=== PATIENT | female | born 1950 | race Asian ===

== ENCOUNTER 2018-06-17 10:38 | Emergency (ER) | payer OTHER ==
[2018-06-17] MEDS ORDERED: Ondansetron ODT TAB* 4 MG PO ONE (11:48)
[2018-06-17] MEDS ORDERED: Meclizine TAB* 12.5 MG PO ONE (11:48)
--- NOTE | 2018-06-17 11:52 | UC ---
Dizzy HPI HPI Summary: 68-year-old woman comes in with a chief complaint of dizziness. 4 days ago she had a brief episode of spinning dizziness and it went away on its own. 2 days ago in the evening of June 15, 2018 she started with more consistent spinning dizziness. The dizziness gets worse with movement of the head or standing and walking. He gets better with rest and keeping her head steady. She occasionally has a frontal headache that she reports is mild and intermittent. Denies any changes in speech. She does say that bright lights make the dizziness and the headache worse. No loss of vision or blurred vision. No focal weakness or numbness. Patient has had dizziness like this on and off in the past but it's always been very brief and gone away on its own. No URI/ sinusitis Sx. No ear pain. Positive nausea. Has vomited. Noted BP 180 at home this am. - History Of Current Complaint Chief Complaint: UCAbdominalPain Stated Complaint: ABD PAIN Time Seen by Provider: 06/17/18 10:48 Pain Intensity: 0 - Allergies/Home Medications Allergies/Adverse Reactions: Allergies Allergy/AdvReac Type Severity Reaction Status Date / Time bee venom protein (honey bee) Allergy Unknown Verified 06/17/18 11:03 Reaction Details sulfamethoxazole Allergy Hives Verified 06/17/18 11:03 [From Bactrim] trimethoprim [From Bactrim] Allergy Hives Verified 06/17/18 11:03 Home Medications: Home Medications Calcium Carbonate [Tums] 500 mg PO 06/17/18 [History] PMH/Surg Hx/FS Hx/Imm Hx Previously Healthy: Yes Cardiovascular History: Hypertension - Surgical History Surgical History: None - Family History Known Family History: Positive: Non-Contributory - Social History Alcohol Use: None Substance Use Type: None Smoking Status (MU): Never Smoked Tobacco Review of Systems All Other Systems Reviewed And Are Negative: Yes Constitutional: Positive: Negative Skin: Positive: Negative Eyes: Positive: Photophobia. Negative: Blurred Vision ENT: Positive: Negative Respiratory: Positive: Negative Cardiovascular: Positive: Negative Gastrointestinal: Positive: Vomiting, Nausea Motor: Positive: Negative Neurovascular: Positive: Negative Musculoskeletal: Positive: Negative Neurological: Positive: Headache Psychological: Positive: Negative Is Patient Immunocompromised?: No Physical Exam Triage Information Reviewed: Yes Appearance: Well-Appearing, No Pain Distress, Well-Nourished Vital Signs: Initial Vital Signs Temp 98.2 F 06/17/18 10:59 Pulse 53 06/17/18 10:59 Resp 18 06/17/18 10:59 BP 155/92 06/17/18 10:59 Pulse Ox 100 06/17/18 10:59 Vital Signs Reviewed: Yes Eyes: Positive: Conjunctiva Clear, Other: - PERRLA/EOMI POSITIVE HORIZONTAL NYSTAGMUS. NO VERTICAL OR AT REST NYSTAGMUS. ENT: Positive: TMs normal, Other - RT EAR CANAL CERUMEN. Negative: Nasal congestion, Nasal drainage Neck exam: Normal Neck: Positive: Supple Respiratory: Positive: Lungs clear, Normal breath sounds, No respiratory distress Cardiovascular: Positive: Bradycardia Musculoskeletal Exam: Normal Musculoskeletal: Positive: Strength Intact, ROM Intact Neurological Exam: Normal Neurological: Positive: Alert, Muscle Tone Normal, Other: - GCS 15. NORMAL SPEECH. NO VISUAL FIELD DEFICITS. NO FACIAL DROOP. NO ARM/LEG WEAKNESS/ NUMBNESS. NORMAL FINGER TO NOSE AND HEEL TO MARLEY. Psychological Exam: Normal Psychological: Positive: Normal Response To Family, Age Appropriate Behavior Skin Exam: Normal Diagnostics - EKG Cardiac Rate: Bradycardia - at 1050 Ectopy: None ST Segment: Normal Dizzy Course/Dx - Course Course Of Treatment: Patient Name: JAMIN DODGE Medical Record#: [id number] Ordering Physician: Kentrell Tian MD Acct.#: [id number] : 1950 Age: 68 Sex: F Location: [facility] Exam Date: 06/17/18 1218 ADM Status: REG ER Order Information: CT BRAIN WO Accession Number: [id number] CPT: 48920 Indication: Dizziness. Abdominal pain. Comparison: No relevant prior exams available on the [facility] for comparison. Technique: Noncontrast CT vertex of skull through foramen magnum. Report: The sulci, ventricles, and basal cisterns are normal for age. Horta matter white matter differentiation is preserved without evidence for edema. No intra or extra axial hemorrhage, mass, or fluid collection detected. Unremarkable visualized orbital contents. Unremarkable calvarium and skull base. Unremarkable scalp. Partially visualized RIGHT maxillary sinus is remarkable for an air-fluid level and punctate gas bubble as well as probable chronic indolent thickening of the sinus wall. Small air-fluid level at the RIGHT sphenoid sinus. Clear mastoid air spaces. IMPRESSION: #. Negative unenhanced CT of the brain. #. Stigmata of acute on chronic RIGHT maxillary sinusitis. Additional small air- fluid level at the RIGHT sphenoid sinus which may reflect acute sinusitis. <Electronically signed by Aleksandr Clifton MD in [place]> 06/17/18 [address] results with the patient and her . Patient was given meclizine and Zofran in clinic. Her nausea is gone and her dizziness is gone. Patient had cerumen in the right ear that was irrigated by nursing. On CT shows sinusitis and I'm treating the patient with Augmentin. We also discussed saline nasal spray and other treatment of sinusitis. I let the patient know that if she had any neurologic deficits she needs to go to the emergency department. - Differential Dx/Diagnosis Provider Diagnosis: Impacted cerumen, right ear, Sinusitis, Dizziness, Vertigo Discharge - Sign-Out/Discharge Documenting (check all that apply): Patient Departure All imaging exams completed and their final reports reviewed: Yes - Discharge Plan Condition: Stable Disposition: HOME Prescriptions: Amoxicillin/Clavulanate TAB* [Augmentin TAB 875*] 875 mg PO BID #20 tab Meclizine HCl [Motion Sickness Relief] 25 mg PO Q6H PRN #20 tablet PRN Reason: Dizziness Patient Education Materials: Vertigo (ED), Dizziness (ED), Cerumen Impaction ( ED), Sinusitis (ED) Referrals: Ilia HERNANDEZ,Scar Mcleod [Primary Care Provider] - Additional Instructions: FOLLOW UP WITH YOUR DOCTOR. GO TO THE EMERGENCY DEPARTMENT FOR ANY WORSENING OF YOUR CONDITION; WEAKNESS, NUMBNESS, DIFFICULTY WITH VISION OR SPEECH OR QUESTIONS OR CONCERNS. - Billing Disposition and Condition Condition: STABLE Disposition: Home
[2018-06-17 13:59] VITALS: BP 139/89
== END 2018-06-17 13:50 | disposition home or self-care (01) ==
LOC: UCEAST 10:38
DX: H61.21 Impacted cerumen, right ear (principal); J32.9 Chronic sinusitis, unspecified; R42 Dizziness and giddiness; I10 Essential (primary) hypertension; Z88.2 Allergy status to sulfonamides; Z91.030 Bee allergy status
CPT/HCPCS: 70450; 99213; A9270-GY; G0463

== ENCOUNTER 2019-07-26 08:00 | Emergency (ER) | payer OTHER, MEDICARE ==
[2019-07-26] MEDS ORDERED: Lidocaine/Epineph/Tetraca SOL 4 ML BTL (LET solution) TOPICAL ONE (08:19)
--- NOTE | 2019-07-26 08:19 | ED ---
Adult Trauma - HPI Summary HPI Summary: 69 y/o female presented to [facility] after a fall this morning on a sidewalk. Pt claims she hit her head and thumb, and currently notes a SETHI mostly in her jaw as well as left thumb and bilat knee pain. Pt denies N/V, neck pain, wrist pain , chipped teeth, and tongue injury. Vision is normal and pt can ambulate. She takes ASA daily and sees doctors on [address]. - History of Current Complaint Chief Complaint: EDFall Stated Complaint: FALL/FACE LAC PER PT Time Seen by Provider: 07/26/19 08:08 Hx Obtained From: Patient Mechanism of Injury: Fall Ambulatory at the Scene: Yes Onset/Duration: Traumatic, Still Present Current Severity: Severe Pain Intensity: 10 Pain Scale Used: 0-10 Numeric Location: Head - left jaw, Extremities - left thumb Aggravating Factor(s): Nothing Alleviating Factor(s): Nothing Associated Signs & Symptoms: Positive: Other: - negative - neck pain, wrist pain , chipped teeth, and tongue injury. Negative: Nausea/Vomiting - Allergy/Home Medications Allergies/Adverse Reactions: Allergies Allergy/AdvReac Type Severity Reaction Status Date / Time bee venom protein (honey bee) Allergy Unknown Verified 07/26/19 08:05 Reaction Details sulfamethoxazole Allergy Hives Verified 07/26/19 08:05 [From Bactrim] trimethoprim [From Bactrim] Allergy Hives Verified 07/26/19 08:05 Home Medications: Home Medications Aspirin EC TAB* [Ecotrin EC Low Dose 81 MG*] 81 mg PO DAILY 09/05/16 [History Confirmed 09/05/16] amLODIPine TAB* [Norvasc 5 mg TAB*] 5 mg PO DAILY 09/05/16 [History Confirmed ] Amoxicillin/Clavulanate TAB* [Augmentin TAB 875*] 875 mg PO BID #20 tab [Rx] Calcium Carbonate [Tums] 500 mg PO 06/17/18 [History] Meclizine HCl [Motion Sickness Relief] 25 mg PO Q6H PRN #20 tablet 06/17/18 [Rx] PMH/Surg Hx/FS Hx/Imm Hx Cardiovascular History: Reports: Hx Hypertension Sensory History: Denies: Hx Legally Blind, Hx Deafness Opthamlomology History: Denies: Hx Legally Blind EENT History: Denies: Hx Deafness - Cancer History Hx Chemotherapy: No Hx Radiation Therapy: No Infectious Disease History: No Infectious Disease History: Denies: Traveled Outside the [place] in Last 30 Days - Family History Known Family History: Positive: Hypertension - Social History Alcohol Use: None Substance Use Type: Reports: None Smoking Status (MU): Never Smoked Tobacco Review of Systems Negative: Vomiting, Nausea Positive: Other - positive - left jaw and left thumb pain; negative - neck pain , wrist pain, chipped teeth, and tongue injury All Other Systems Reviewed And Are Negative: Yes Physical Exam - Summary Physical Exam Summary: Constitutional: Well-developed, Well-nourished, Alert. (-) Distressed Skin: Warm, Dry HENT: Normocephalic; Atraumatic; Contusion/swelling over left zygomatic region; 2cm laceration along left mandible; Eyes: Conjunctiva normal Neck: Musculoskeletal ROM normal neck. (-) JVD, (-) Stridor, (-) Tracheal deviation Cardio: Rhythm regular, rate normal, Heart sounds normal; Intact distal pulses; The pedal pulses are 2+ and symmetric. Radial pulses are 2+ and symmetric. (-) Murmur Pulmonary/Chest wall: Effort normal. (-) Respiratory distress, (-) Wheezes, (-) Rales Abd: Soft, (-) tenderness, (-) Distension, (-) Guarding, (-) Rebound Musculoskeletal: (-) Edema; Contusion base of left thumb. No gross deformity; No knee contusion, Normal ROM. Ambulatory. Normal gait. Lymph: (-) Cervical adenopathy Neuro: Alert, Oriented x3. GCS 15 Psych: Mood and affect Normal Triage Information Reviewed: Yes Vital Signs On Initial Exam: Initial Vitals Temp Pulse Resp BP Pulse Ox 98 F 60 16 180/88 100 07/26/19 08:02 07/26/19 08:02 07/26/19 08:02 07/26/19 08:02 07/26/19 08:02 Vital Signs Reviewed: Yes Procedures - Sedation Patient Received Moderate/Deep Sedation with Procedure: No - Laceration/Wound Repair 4 Location: face - left jaw Description: Linear Anesthesia: 1.0% - Topical Let initially, followed by 3cc 1% lidocaine Length, Depth and Shape: 2cm Betadine Prep?: No - soap and water; Chlorhexidine Laceration/Wound Explored: clean Closure: Single Layer - stitches Debridement: none Suture Type: Prolene Number of Sutures: 4 Layer Closure?: Yes Sterile Dressing Applied?: Yes Diagnostics - Vital Signs Vital Signs Temp Pulse Resp BP Pulse Ox 07/26/19 08:02 98 F 60 16 180/88 100 - Laboratory Lab Statement: Any lab studies that have been ordered have been reviewed, and results considered in the medical decision making process. - Radiology Left hand Xray Radiology Interpretation Completed By: Radiologist Summary of Radiographic Findings: IMPRESSION: OSTEOARTHRITIS. NO ACUTE OSSEOUS INJURY. IF SYMPTOMS PERSIST, RECOMMEND REPEAT IMAGING. This report was reviewed by Dr. Steiner. - CT Head CT Interpretation Completed By: Radiologist Summary of CT Findings: IMPRESSION: NO ACUTE INTRACRANIAL PATHOLOGY. This report was reviewed by Dr. Steiner. Maxillofacial CT Interpretation Completed By: Radiologist Summary of CT Findings: IMPRESSION: NO FACIAL FRACTURE. MODERATE SINUS MUCOSAL INFLAMMATORY DISEASE, WITH AIR-FLUID LEVELS IN THE SPHENOID SINUS. AND RIGHT MAXILLARY SINUS.. IN THE CORRECT CLINICAL SETTING, THIS MAY REPRESENT ACUTE. SINUSITIS. This report was reviewed by Dr. Steiner. Adult Trauma Course/Dx - Diagnoses Provider Diagnoses: Facial contusion, Facial laceration, Contusion of left hand - Critical Care Time Critical Care Statement: Critical care time is provided exclusive of any time spent performing procedures. Discharge ED - Sign-Out/Discharge Documenting (check all that apply): Patient Departure - dc - Discharge Plan Condition: Stable Disposition: HOME Patient Education Materials: Care For Your Stitches (ED) Referrals: Ilia HERNANDEZ,Scar Mcleod [Medical Doctor] - Additional Instructions: Follow up with your primary care provider in 5 days for suture removal. If you experience new or worsening symptoms please return to the ER. - Billing Disposition and Condition Condition: STABLE Disposition: Home - Attestation Statements Document Initiated by Scribe: Yes Documenting Scribe: Sam Ware Provider For Whom Johann is Documenting (Include Credential): Andrew Steiner DO Scribe Attestation: Sam Lopez scribed for Andrew Steiner DO on 07/26/19 at 1007. Scribe Documentation Reviewed: Yes Provider Attestation: The documentation as recorded by the Sam nugent accurately reflects the service I personally performed and the decisions made by me, Andrew Steiner, DO Status of Scribe Document: Viewed
[2019-07-26] MEDS ORDERED: Lidocaine 1% MPF ** 5 ML VIAL INJ ONE (08:20)
[2019-07-26] MEDS ORDERED: Bacitracin OINTMENT* 0.5% 0.5 oz TUBE TOPICAL ONE (09:41)
[2019-07-26 10:07] VITALS: BP 151/90
== END 2019-07-26 10:05 | disposition home or self-care (01) ==
LOC: ED 08:00
DX: S01.81XA Laceration without foreign body of other part of head, initial encounter (principal); S00.83XA Contusion of other part of head, initial encounter; S60.222A Contusion of left hand, initial encounter; I10 Essential (primary) hypertension; Z88.0 Allergy status to penicillin; W19.XXXA Unspecified fall, initial encounter; Y92.480 Sidewalk as the place of occurrence of the external cause; Z79.82 Long term (current) use of aspirin
CPT/HCPCS: 12011; 70450; 70486; 99282; A9270-GY